=== PATIENT | female | born 1930 | race Caucasian/White ===

== ENCOUNTER 2016-07-16 08:54 | Inpatient (IN) ==
--- NOTE | 2016-07-16 10:09 | Diag Imaging Result Document ---
PROCEDURE NAME: CHEST-2 VIEWS - 07/16/2016 TWO VIEWS OF THE CHEST: There are scattered reticulonodular opacities throughout both lungs with the possible exception of the right middle lobe. There are no previous studies. IMPRESSION: Probable pulmonary fibrosis. The possibility of superimposed acute pneumonitis or pneumonia cannot be excluded and comparison with previous studies is recommended.
[2016-07-16] MEDS ORDERED: DUONEB (A & A) INH ONE (10:59)
[2016-07-16] MEDS ORDERED: ZITHROMAX 500 MG/NS 250 ML IV ONE (11:00)
[2016-07-16] MEDS ORDERED: ROCEPHIN 1 GM/NS 50 ML IV ONE (11:00)
[2016-07-16] MEDS ORDERED: ALBUTEROL NEB INH ONE (11:00)
[2016-07-16] MEDS ORDERED: SOLU-MEDROL IV ONE (11:01)
--- NOTE | 2016-07-16 11:14 | PROVIDER DOCUMENTATION ---
HPI-Respiratory General - General Chief Complaint: Cough Stated Complaint: POSS PNEUMONIA Time Seen by Provider: 07/16/16 11:08 Source: patient Allergies/Adverse Reactions: Patient Allergies Allergy/AdvReac Type Severity Reaction Status Date / Time No Known Allergies Allergy Verified 07/16/16 11:04 Home Medications: Home Medication List Medication Instructions Recorded Confirmed Last Taken Type Hydrocodone/APAP 5 mg/325 mg 1 each PO Q6H PRN PRN #10 tablet 12/07/12 07/16/16 07/16/16 06:30 Rx [[place]-5] Verapamil [Isoptin] 240 mg PO QAM 12/07/12 07/16/16 07/16/16 06:30 History CefPROZIL [Cefzil] 250 mg PO BID 07/16/16 07/16/16 07/16/16 06:30 History Oseltamivir [Tamiflu] 75 mg PO BID 07/16/16 07/16/16 07/16/16 06:30 History - History of Present Illness-Resp Nature of Presenting Problem: patient is a 86 y/o F that presents to the ER with one week of cough( yellow sputum) and body aches. Patient as exposed to flu this past week. No v/d. fever/ chills. Quality of Pain: reports: aching Severity in ED: reports: mild, moderate Onset/Duration: reports: gradual, 1 week ago Timing: reports: still present, constant Context: reports: multiple patients with similar complaints Cough Quality/Degree: reports: moderate, productive cough, sputum (yellow) Episode Frequency: no prior episodes Current Respiratory Medication Therapy: Initiated see nurses note Modifying Factors: worse with: exertion, coughing Associated Symptoms: reports: cough, flu-like symptoms, muscle/bodyaches, shortness of breath. denies: fever/chills, nasal congestion, nasal drainage Similar Symptoms Previously?: No Recently seen or treated by another doctor?: No Review of Systems - Adult - REVIEW OF SYSTEMS - ADULT Constitutional: reports: fever. denies: chills Eyes: reports: no symptoms reported Ears, Nose, Mouth & Throat: denies: ear pain, sinus problem, throat pain, throat swelling Cardiovascular: reports: chest pain (with inspiration) Respiratory: reports: cough, excessive sputum production, pleurisy Gastrointestinal: reports: nausea. denies: abdominal pain, diarrhea, vomiting Genitourinary: reports: no symptoms reported Musculoskeletal: reports: muscle aches. denies: muscle weakness, neck pain Integumentary: reports: no symptoms reported Neurological: denies: dizziness/vertigo, headache/migraines, tremors Psychiatric: reports: no symptoms reported Endocrine: reports: no symptoms reported Hematologic/Lymphatic: reports: no symptoms reported Allergic/Immunologic: reports: no symptoms reported All Other Systems: Reviewed and Negative Past History - Adult - PAST MEDICAL HISTORY-ADULT Review of Records: reports: Old Records Reviewed, Nursing Assessment Review, Medications Reviewed Cardiovascular: reports: HTN Endocrine/Immune: reports: thyroid disorder - PRIOR SURGERIES/PROCEDURES Surgical/Procedure History: reports: hysterectomy, other (bladder) - IMMUNIZATION STATUS Childhood Immunizations: See Nurse Assessment Flu Vaccine: See Nurse Assessment - FAMILY HISTORY Family History: reviewed, not pertinent - SOCIAL HISTORY Smoking: non-smoker Living Situation: family Physical Exam-General - PHYSICAL EXAM-ADULT Initial Vital Signs Reviewed: Yes - CONSTITUTIONAL General Appearance: alert, no apparent distress - EYES Eyes: PERRL/EOMI, pink conjunctivae - HEAD, EARS, NOSE, MOUTH & THROAT HENMT: normocephalic/atraumatic, moist mucous membranes, normal ENT inspection - NECK Neck: full range of motion, normal inspection. negative: lymphadenopathy - RESPIRATORY Respiratory: no respiratory distress, no accessory muscle use, rhonchi ( bilaterally), wheezing (bilaterally) - CARDIOVASCULAR Cardiovascular: regular rate, rhythm, no gallop, no murmur - GASTROINTESTINAL (ABDOMEN) Abdominal Exam: normal bowel sounds, non tender, soft, no organomegaly, no pulsatile mass - MUSCULOSKELETAL Extremity: normal range of motion, normal inspection, no pedal edema - SKIN Integumentary: normal color, warm/dry - NEUROLOGIC Neurologic: grossly normal, no motor/sensory deficits - PSYCHIATRIC Psych/Mental Status: normal mood/affect, normal thought content, normal thought process, oriented x 3 Progress - PLAN OF CARE/RESULTS Progress/Plan/Lab Results: Vital Signs Temp Pulse Resp BP Pulse Ox 07/16/16 11:58 93 H 25 H 124/53 95 07/16/16 11:15 114 H 16 94 L 07/16/16 09:08 98.2 F 92 H 18 133/56 92 L No Known Allergies Allergy (Verified 07/16/16 11:04) Hydrocodone/APAP 5 mg/325 mg [[place]-5] 1 each PO Q6H PRN PRN #10 tablet Verapamil [Isoptin] 240 mg PO QAM 12/07/12 CefPROZIL [Cefzil] 250 mg PO BID 07/16/16 Oseltamivir [Tamiflu] 75 mg PO BID 07/16/16 Laboratory 07/16/16 07/16/16 07/16/16 11:06 10:45 10:45 WBC RBC Hgb Hct MCV MCH MCHC RDW Std Deviation Plt Count MPV Immature Gran % (Auto) Neut % (Auto) Lymph % (Auto) [place] % (Auto) Eos % (Auto) Baso % (Auto) Immature Gran # (Auto) Neut # (Auto) Lymph # (Auto) [place] # (Auto) Eos # (Auto) Baso # (Auto) Specimen Type ARTERIAL Sample Site R RADIAL pH 7.40 pCO2 37 pO2 73 HCO3 23.7 Base Excess -1.5 Oxyhemoglobin 93.9 L ABG O2 Sat (Calculated) 18.8 ABG O2 Saturation 97.7 ABG Carboxyhemoglobin 2.30 ABG Methemoglobin 1.5 Azeem Test YES A-a O2 Difference 109.0 Total Hemoglobin 14.2 Lactate 0.60 Blood Gas Modality CANNULA FiO2 % 32.0 Sodium 137 Potassium 4.4 Chloride 99 Carbon Dioxide 23 L Anion Gap 15 BUN 27 H Creatinine 1.0 H Estimated GFR/1.73 m2 52 BUN/Creatinine Ratio 27 Glucose 109 H Calculated Osmolality 280 Calcium 9.1 Total Bilirubin 0.40 AST 25 ALT 14 Alkaline Phosphatase 101 Total Protein 7.5 Albumin 3.5 Globulin 4.0 Albumin/Globulin Ratio 0.9 Plasma Lactate 1.2 07/16/16 10:45 WBC 11.29 H RBC 4.81 Hgb 13.5 Hct 42.5 MCV 88.4 MCH 28.1 MCHC 31.8 L RDW Std Deviation 14.2 Plt Count 233 MPV 10.9 H Immature Gran % (Auto) 0.4 Neut % (Auto) 80.1 H Lymph % (Auto) 10.7 L [place] % (Auto) 8.6 Eos % (Auto) 0.0 Baso % (Auto) 0.2 Immature Gran # (Auto) 0.05 H Neut # (Auto) 9.04 H Lymph # (Auto) 1.21 [place] # (Auto) 0.97 H Eos # (Auto) 0.00 Baso # (Auto) 0.02 Specimen Type Sample Site pH pCO2 pO2 HCO3 Base Excess Oxyhemoglobin ABG O2 Sat (Calculated) ABG O2 Saturation ABG Carboxyhemoglobin ABG Methemoglobin Azeem Test A-a O2 Difference Total Hemoglobin Lactate Blood Gas Modality FiO2 % Sodium Potassium Chloride Carbon Dioxide Anion Gap BUN Creatinine Estimated GFR/1.73 m2 BUN/Creatinine Ratio Glucose Calculated Osmolality Calcium Total Bilirubin AST ALT Alkaline Phosphatase Total Protein Albumin Globulin Albumin/Globulin Ratio Plasma Lactate Orders Category Date Time Status CHEST-2 VIEWS [RAD] Stat Exams 07/16/16 09:12 Completed ABG [RESP] Routine Lab 07/16/16 11:06 Completed BLOOD CULTURE [BLDCUL] Stat Lab 07/16/16 10:45 Results CBC WITH DIFF [HEME] Stat Lab 07/16/16 10:45 Completed CMP [COMPREHENSIVE METABOLIC PANEL] [CHEM] Stat Lab 07/16/16 10:45 Completed LACTATE, PLASMA [CHEM] Stat Lab 07/16/16 10:45 Completed SPUTUM CULTURE WITH GRAM STAIN [RM] Routine Lab 07/16/16 12:05 Received Albuterol 2.5MG/Ipratrop 0.5MG [Duoneb (A & A)] Med 07/16/16 10:59 Discontinued 3 ml INH NOW ONE Albuterol [Albuterol Neb] Med 07/16/16 11:00 Discontinued 5 mg INH NOW ONE Azithromycin 500 mg/Ns [Zithromax 500 mg/Ns] 250 ml Med 07/16/16 11:00 Discontinued IV NOW CefTRIAXONE 1 GM/NS [Rocephin 1 gm/Ns] 50 ml Med 07/16/16 11:00 Discontinued IV NOW Methylprednisolone Sod Succ [Solu-Medrol] Med 07/16/16 11:01 Discontinued 125 mg IV NOW ONE Aerosol Treatments Routine Oth 07/16/16 10:59 Completed Aerosol Treatments Stat Oth 07/16/16 10:59 Completed - XRAY 1 XRAY Study: Chest Impression: Abnormal XRAY Interpretation: probably pulmonary fibrosis, possible pneumonitis or pneumonia cannot r/o - CONSULTS/PCP/HOSPITALIST Notification #1 *Consult/PCP/Hospitalist*: Time Discussed: 12:49 Consult Disposition: Will see in ED, Admit Departure - Departure Time of Disposition Order: 12:49 DIAGNOSIS: Pneumonia Qualifiers: Pneumonia type: due to unspecified organism Laterality: bilateral Lung location : unspecified part of lung Qualified Code(s): J18.9 - Pneumonia, unspecified organism Disposition: ADMITTED INPATIENT 09 Certified Medical Emergency: Emergent Condition: Stable Attestation - Scribe Verification/Attestation Scribe:: Moses Treadwell Acting as Scribe for:: Nav Turner Scribe documention review:: This chart was documented by a scribe and accurately reflects the service the provider performed and the decisions made by the provider. - Physician/ SARAN Attestation Patient care was provided by Advanced Practice Provider:: Yes Advanced Practice Provider:: Nav Turner Advanced Practice Provider documentation review:: The Mid-level provider documentation, treatment plan and medical decision making was reviewed by the physician who agrees with all treatment and medical decision making by the MLP. Physician Attestation - Physician Attestation I, the provider, attest to the following statement:: Nav Turner Physician documentation Attestation:: This documentation recorded by the scribe accurately reflects the service I personally performed and the decisions made by me.
[2016-07-16 11:17] LABS: ALLEN TEST YES; BE -1.5 mmoll (-3.0-3.0); BLOOD TYPE ARTERIAL; DRAW SITE R RADIAL; METHB 1.5 % (0.0-1.5); O2(CT) 18.8 mL/dL (15.0-23.0); PCO2(98.6) 37 mmHg (35-45); PO2(98.6) 73 mmHg (60-100); SAMPLE BLOOD; SAO2 97.7 % (95.0-100.0); THB 14.2 g/dL (11.5-17.4)
[2016-07-16 11:18] LABS: MANUAL DIFF NEEDED? NO
[2016-07-16 11:21] LABS: MODALITY CANNULA
[2016-07-16 11:22] LABS: BASO% 0.2 % (0.0-0.8); HEMATOCRIT 42.5 % (37.0-47.0); HEMOGLOBIN 13.5 g/dL (12.0-16.0); IMM GRAN# 0.05 X1000 (0.0-0.04); IMM GRAN% 0.4 % (0.0-0.5); LYMPH# 1.21 X1000 (1.2-3.4); LYMPH% 10.7 % (20.5-51.1); MCH 28.1 PG (27-31); MCHC 31.8 g/dL (33-37); MCV 88.4 FL (81-99); MONO# 0.97 X1000 (0.11-0.59); MONO% 8.6 % (1.7-9.3); MPV 10.9 FL (7.4-10.4); NEUT% 80.1 % (42.2-75.2); PLT 233 X1000 (130-400); RBC 4.81 XMIL (4.2-5.4)
[2016-07-16 11:59] LABS: ALBUMIN 3.5 g/dL (3.5-5.0); CALCIUM 9.1 mg/dL (8.8-10.2); POTASSIUM 4.4 mmol/L (3.5-5.1); TOTAL BILIRUBIN 0.4 mg/dL (0.20-1.00); TOTAL PROTEIN 7.5 g/dL (6.3-8.3)
[2016-07-16] MEDS ORDERED: DUONEB (A & A) INH PRN (15:04)
[2016-07-16] MEDS ORDERED: ROBITUSSIN-DM PO PRN (16:20)
--- NOTE | 2016-07-16 16:53 | Diag Imaging Result Document ---
PROCEDURE NAME: CT THORAX W/O CONTRAST - 07/16/2016 CT CHEST WITHOUT CONTRAST: COMPARISON: None available. FINDINGS: There is diffuse coarse interstitial thickening throughout both lungs as well as patchy ground-glass opacity with mild traction bronchiectasis at the lung bases suggesting pulmonary fibrosis in a pattern most suggestive of nonspecific interstitial pneumonia. There is involvement of all of the pulmonary lobes bilaterally. It would be difficult to completely exclude superimposed infectious pneumonia in the right clinical scenario, however. Followup chest radiography is recommended. There is no pleural fluid collection or pneumothorax. There is nonspecific mediastinal and hilar lymphadenopathy. For reference, one of the larger sub- carinal richi conglomerates measures up to 2.8 x 1.8 cm axially. Limited views of the upper abdomen reveals a calcified stone in the lumen of the gallbladder with no surrounding inflammatory change. There is aortic atherosclerotic calcification. IMPRESSION: 1. Bilateral diffuse pulmonary fibrosis as described. In the right clinical scenario, superimposed infectious pneumonia would be difficult to completely exclude as there are no prior studies available for comparison. 2. Nonspecific mediastinal and hilar lymphadenopathy. 3. Other incidental/nonacute findings detailed above. [facility]
[2016-07-16] MEDS: ROCEPHIN 1 GM/NS 50 ML IV SCH (18:04)
[2016-07-16] MEDS: NS 1,000 ML IV SCH (18:04)
--- NOTE | 2016-07-16 18:34 | HISTORY AND PHYSICAL ---
PRIMARY CARE PHYSICIAN: Dr. Mccarthy. CHIEF COMPLAINT: Cough and shortness of breath. HISTORY OF PRESENT ILLNESS: Ms. Burns is a pleasant 86-year-old female with a history of chronic back pain and hypertension who presents with 2 weeks of shortness of breath and progressive cough. Over the past week she has been having cough with white to yellowish sputum production. Also with a reported fever of 102 degrees Fahrenheit. She was reportedly exposed to someone with the flu last week and was put on Tamiflu by her PCP as well as antibiotics. The symptoms have not improved, and she came to the ER for evaluation. She denies any abdominal pain, nausea, or vomiting. She does report occasional chest pain with cough. She denies lower extremity edema or orthopnea. She came to the ER for evaluation. In the ER, chest x-ray was compatible with fibrosis, laboratory data shows mild renal insufficiency and a leukocytosis of 11.29. On examination, her lungs have significant rhonchi bilaterally and she is saturating within normal limits. Given her symptoms, we are going to admit her for early pneumonia, blood cultures and antibiotics have been initiated. Appropriately. PAST MEDICAL HISTORY: 1. Chronic back pain. 2. Hypertension. SURGICAL HISTORY: Hysterectomy, bladder surgery, questionable thyroid surgery. SOCIAL HISTORY: No history of tobacco, alcohol or drug use. She is and lives alone with strong family support. FAMILY HISTORY: Both parents from "old age". REVIEW OF SYSTEMS: Fourteen-point review of systems obtained and found to be negative with the exception of the HPI. PHYSICAL EXAMINATION: VITAL SIGNS: Blood pressure is 114/76, heart rate 75, respiratory rate 24, saturation 95% on 2 L. Temperature is 98.2 degrees. GENERAL: This is a elderly-appearing 86-year-old female, lying in hospital bed in no acute distress. NEUROLOGIC: She is awake, alert, and oriented. She follows commands without focal deficits. HEENT: Head is atraumatic, normocephalic. Her pupils are equal, round, reactive to light. Oral mucosa is dry. Trachea is midline. No JVD. CHEST: Coarse bilaterally with rhonchi. CARDIOVASCULAR: Regular rate and rhythm. S1-S2 is noted. No murmurs, gallops, clicks, or rubs. GI: Soft, nondistended, nontender. Bowel sounds are positive. EXTREMITIES: Without edema, clubbing or cyanosis. Pulses are palpable bilaterally. DIAGNOSTIC DATA: Chest x-ray shows a fibrotic type picture, WBC 11.29, hemoglobin 13.5, hematocrit 42.5, platelet count 233,000. ABG on nasal cannula 2 L shows a pH of 7.4, CO2 of 37, O2 73, bicarb 23.7, sodium 137, potassium 4.4, chloride 99, CO2 23, anion gap 15, BUN 27, creatinine 1, glucose 109, calcium 9.1, bilirubin 0.4, AST 25, ALT 14, alkaline phosphatase 101. Protein 7.5, albumin 3.5, lactate 1.2. ASSESSMENT AND PLAN: 1. Community-acquired pneumonia: Failed outpatient treatment: I will admit the patient for IV antibiotics, breathing treatments and aggressive pulmonary toilet. Given the fibrotic-type picture, we will check a computed tomography without contrast for better visualization. We may consider inpatient Pulmonary consult or if her symptoms improve, we may let her see Pulmonary on an outpatient basis. We will continue antibiotics, breathing treatments and convert to oral within the next 24-48 hours. 2. Hypertension: Chronic and stable, continue home medications. 3. Renal insufficiency: Based on her age, weight, et cetera, her glomerular filtration rate is 52, we will continue light IV fluid hydration and monitor. Avoid any nephrotoxic medications. 4. We are going to add Lovenox 30 mg per day for deep venous thrombosis prophylaxis and p.o. proton pump inhibitor for gastrointestinal prophylaxis. Further recommendations to follow. Dictated by HERNANDO Boyer for Raquel England MD
[2016-07-16] MEDS: ZITHROMAX 500 MG/NS 250 ML IV SCH (18:46)
[2016-07-16] MEDS: MUCOMYST 20% INH SCH (19:25)
[2016-07-16] MEDS: DUONEB (A & A) INH SCH ×2 (19:25→23:45)
[2016-07-16] MEDS: TESSALON PO SCH (22:41)
[2016-07-16] MEDS: NORCO-5 PO PRN (23:47)
[2016-07-17] MEDS: DUONEB (A & A) INH SCH ×6 (03:23→23:22)
[2016-07-17] MEDS: NS 1,000 ML IV SCH ×2 (05:25→23:53)
[2016-07-17] MEDS: PRILOSEC PO SCH (06:31)
[2016-07-17 06:39] LABS: HEMATOCRIT 37.8 % (37.0-47.0); HEMOGLOBIN 11.9 g/dL (12.0-16.0); MCH 28.4 PG (27-31); MCHC 31.5 g/dL (33-37); MCV 90.2 FL (81-99); MPV 10.7 FL (7.4-10.4); RBC 4.19 XMIL (4.2-5.4)
[2016-07-17 06:51] LABS: CALCIUM 9.1 mg/dL (8.8-10.2); POTASSIUM 4.9 mmol/L (3.5-5.1)
[2016-07-17] MEDS: MUCOMYST 20% INH SCH ×2 (07:30→19:32)
--- NOTE | 2016-07-17 07:47 | Diag Imaging Result Document ---
PROCEDURE NAME: CHEST-PORTABLE - 07/17/2016 SINGLE FRONTAL RADIOGRAPH OF THE CHEST: COMPARISON: 07/16/2016. FINDINGS: Inspiration is suboptimal. There is stable mild elevation of the right hemidiaphragm. There are stable increased interstitial markings suggesting pulmonary fibrosis. No new consolidation is identified. Cardiac silhouette is stable. IMPRESSION: Stable chest.
[2016-07-17] MEDS ORDERED: ROBITUSSIN-DM PO ONE (09:22)
[2016-07-17 09:43] LABS: HEMOGLOBIN A1C 5.2 % (4.8-6.0)
[2016-07-17] MEDS: TESSALON PO SCH ×3 (09:44→21:42)
[2016-07-17] MEDS: ISOPTIN SR PO SCH (09:44)
[2016-07-17] MEDS: ZOSYN 3.375 GM/NS 50 ML IV SCH ×3 (09:49→21:42)
--- NOTE | 2016-07-17 13:35 | PROGRESS NOTE ---
DATE: 07/17/2016 SUBJECTIVE: The patient complains of a productive cough. Otherwise, she states that she feels okay. OBJECTIVE: Vital Signs: Temperature 98 degrees, blood pressure 170/66, heart rate 93, respirations 22, and O2 saturations 95% on room air. General: This is an elderly female, sitting up in bed in no acute distress. Head: Normocephalic, atraumatic. Heart: S1 , S2. Normal. Regular rate and rhythm. Lungs: Coarse breath sounds bilaterally. No crackles. No rales. Abdomen: Positive bowel sounds. Soft, nontender, nondistended. Extremities: No edema. No cyanosis. No calf tenderness. Neurologic: The patient is alert and oriented x3. LABS: White blood cell count 9.4, hemoglobin 11, hematocrit 37, platelets 196. Sodium 142, potassium 4.9, chloride 103, CO2 23, BUN 24, creatinine 0.9, glucose 130. ASSESSMENT AND PLAN: 1. Pneumonia. Continue on intravenous antibiotic therapy plus bronchodilator. 2. Hypertension. Controlled. 3. UTI. Continue on IV antibiotic therapy. Follow up on the urine culture. 4. Deep vein thrombosis prophylaxis. Will start the patient on Lovenox. 5. Will consult physical therapy. [facility]
[2016-07-17] MEDS: LOVENOX SUBQ SCH ×2 (14:04→14:06)
[2016-07-17] MEDS: ROCEPHIN 1 GM/NS 50 ML IV SCH (14:04)
[2016-07-17] MEDS: ZITHROMAX 500 MG/NS 250 ML IV SCH (17:31)
[2016-07-17 18:18] LABS: URINE SOURCE CLEAN CATCH
[2016-07-17 18:23] LABS: BILIRUBIN URINE NEGATIVE (NEGATIVE); BLOOD URINE MODERATE (NEGATIVE); COLOR YELLOW; GLUCOSE URINE NEGATIVE (NEGATIVE); LEUKOCYTES URINE MODERATE (NEGATIVE); NITRITE URINE POSITIVE (NEGATIVE); PROTEIN URINE TRACE mg/dL (NEGATIVE); SP GRAVITY URINE 1.023; TURBIDITY URINE HAZY (CLEAR); URINE MICRO REVIEW NEEDED? YES; UROBILINOGEN URINE NORMAL (NORMAL)
[2016-07-17 18:24] LABS: UR EPITHELIAL CELLS <10 /HPF (<10); URINE BACTERIA 1+ /HPF; URINE RBC TNTC /HPF (<10); URINE WBC <10 /HPF (<10)
[2016-07-17] MEDS: NORCO-5 PO PRN (21:42)
[2016-07-18] MEDS: DUONEB (A & A) INH SCH ×6 (03:43→23:45)
[2016-07-18] MEDS: ZOSYN 3.375 GM/NS 50 ML IV SCH ×5 (04:01→22:07)
[2016-07-18] MEDS: PRILOSEC PO SCH (06:39)
[2016-07-18 07:23] LABS: HEMATOCRIT 36.3 % (37.0-47.0); HEMOGLOBIN 11.5 g/dL (12.0-16.0); MCH 28.8 PG (27-31); MCHC 31.7 g/dL (33-37); MCV 90.8 FL (81-99); MPV 10.8 FL (7.4-10.4)
--- NOTE | 2016-07-18 07:50 | Diag Imaging Result Document ---
PROCEDURE NAME: CHEST-PORTABLE - 07/18/2016 SINGLE FRONTAL RADIOGRAPH OF THE CHEST: COMPARISON: 07/17/2016. FINDINGS: Bilateral pulmonary fibrosis is unchanged. No new consolidations are identified. Cardiac silhouette is stable. IMPRESSION: Stable chest.
[2016-07-18] MEDS: MUCOMYST 20% INH SCH ×2 (07:55→19:26)
[2016-07-18 08:40] LABS: POTASSIUM 4.2 mmol/L (3.5-5.1)
[2016-07-18] MEDS: ISOPTIN SR PO SCH (09:58)
[2016-07-18] MEDS: TESSALON PO SCH ×3 (09:58→20:31)
[2016-07-18] MEDS: NS 1,000 ML IV SCH (10:00)
[2016-07-18] MEDS: APRESOLINE PO SCH ×2 (10:32→17:22)
[2016-07-18] MEDS: NORVASC PO SCH (10:32)
[2016-07-18] MEDS: LOVENOX SUBQ SCH (13:32)
--- NOTE | 2016-07-18 14:40 | PROGRESS NOTE ---
DATE: 07/18/2016 SUBJECTIVE: The patient is sitting in a chair. She states that she feels better. She is still coughing a little bit. OBJECTIVE: Vital Signs: Temp 98 degrees, blood pressure 119/75, heart rate 74 ,respirations 18, O2 saturations 97% on 2 L. General: This is an elderly female, lying comfortably in bed, in no acute distress. Head: Normocephalic atraumatic. Heart: S1, S2. Normal. Regular rate and rhythm. Lungs: Clear to auscultation bilaterally. No wheezes, no rales. No rhonchi. Abdomen: Positive bowel sounds. Soft, nontender, nondistended. Extremities: No edema. No cyanosis. No calf tenderness. Neurologic: The patient is alert and oriented x3. LABS: Urine culture is growing gram-negative rods. Sputum culture is growing gram-negative rods. White blood cell count 13, hemoglobin 11, hematocrit 36, platelets 217,000. Sodium 144, potassium 4.2, chloride 109, CO2 17, BUN 23, creatinine 0.9, glucose 109, calcium 8. ASSESSMENT AND PLAN: 1. Pneumonia. The patient's sputum culture is growing gram-negative rods. We will continue on Zosyn and await the final culture results. Continue with bronchodilator therapy and supplemental oxygen. 2. Accelerated hypertension. Will add hydralazine. 3. UTI. Continue on IV antibiotic. 4. Deep vein thrombosis prophylaxis. Continue on Lovenox. 5. Continue with physical therapy. [facility]
[2016-07-18] MEDS: ROCEPHIN 1 GM/NS 50 ML IV SCH (15:45)
[2016-07-18] MEDS ORDERED: CALMOSEPTINE OINTMENT TOP PRN (16:15)
[2016-07-18] MEDS: ZITHROMAX 500 MG/NS 250 ML IV SCH (17:22)
[2016-07-18] MEDS: NORCO-5 PO PRN (20:32)
[2016-07-19] MEDS: APRESOLINE PO SCH ×4 (01:18→22:49)
[2016-07-19] MEDS: DUONEB (A & A) INH SCH ×6 (03:38→23:44)
[2016-07-19] MEDS: ZOSYN 3.375 GM/NS 50 ML IV SCH ×2 (03:50→09:08)
[2016-07-19] MEDS: PRILOSEC PO SCH ×2 (03:50→06:09)
[2016-07-19 07:03] LABS: HEMATOCRIT 39.7 % (37.0-47.0); HEMOGLOBIN 12.7 g/dL (12.0-16.0); MCH 28.3 PG (27-31); MCV 88.6 FL (81-99); MPV 10.2 FL (7.4-10.4); RBC 4.48 XMIL (4.2-5.4)
[2016-07-19 07:23] LABS: AGAP 15; BUN 12 mg/dL (8-22); CALCIUM 8.3 mg/dL (8.8-10.2); CHLORIDE 104 mmol/L (98-107); COSMO 280; POTASSIUM 3.2 mmol/L (3.5-5.1); SODIUM 141 mmol/L (136-145); TCO2 22 mmol/L (25-35)
[2016-07-19] MEDS: MUCOMYST 20% INH SCH ×2 (08:28→19:40)
[2016-07-19] MEDS: NORVASC PO SCH (09:08)
[2016-07-19] MEDS: TESSALON PO SCH ×3 (09:08→22:49)
[2016-07-19] MEDS: ISOPTIN SR PO SCH (09:08)
--- NOTE | 2016-07-19 09:08 | Diag Imaging Result Document ---
PROCEDURE NAME: CHEST-2 VIEWS - 07/19/2016 CHEST X-RAY 2 VIEWS, 07/19/2016: COMPARISON: 07/18/2016. FINDINGS: There is little change in the cardiomegaly and mild pulmonary vascular congestion. There is also reticulonodular opacity throughout the lungs, consistent with a combination of fibrosis and possible pulmonary edema. No pneumothorax or significant effusion. IMPRESSION: Cardiomegaly. Pulmonary fibrosis. Possible pulmonary edema. Recommend correlating with ProBNP level.
[2016-07-19] MEDS ORDERED: KLOR-CON PO ONE (09:13)
[2016-07-19] MEDS: NORCO-5 PO PRN ×2 (11:38→22:54)
[2016-07-19] MEDS: LASIX IV SCH (13:15)
[2016-07-19] MEDS ORDERED: APRESOLINE PO ONE (15:27)
[2016-07-19] MEDS: ROCEPHIN 1 GM/NS 50 ML IV SCH (15:47)
[2016-07-19] MEDS: LOVENOX SUBQ SCH (15:47)
--- NOTE | 2016-07-19 15:51 | PROGRESS NOTE ---
DATE: 07/19/2016 SUBJECTIVE: The patient complains of diarrhea, however it looks like she is having soft stools. OBJECTIVE: Vital Signs: Temperature 97 degrees, blood pressure 163/71, heart rate 73, respiration 20, O2 saturations 94% on 2 L nasal cannula. General: This is an elderly female, lying comfortably in bed, in no acute distress. Head: Normocephalic, atraumatic. Heart: S1, S2. Normal. Lungs: Coarse breath sounds bilaterally with crackles. Abdomen: Positive bowel sounds. Soft, nontender, nondistended. Extremities: No edema. No cyanosis. No calf tenderness. Neurologic: The patient is alert and oriented x3. LABS: White blood cell count 8.2, hemoglobin 12, hematocrit 39, platelets 251, 000. Sodium 141, potassium 3.2, chloride 104, CO2 22, BUN 12, creatinine 0.8, glucose 82. ProBNP 2495. ASSESSMENT AND PLAN: 1. H.influenza pneumonia. Continue on rocephin. 2. Acute pulmonary edema. Will order an echocardiogram and start the patient on IV Lasix. We will also monitor daily weights. 3. Accelerated hypertension. We will continue to adjust the patient's antihypertensives. 4. UTI secondary to e.coli. Continue on rocephin 5. Diarrhea. Will check the patient for c.diff. Start lactobacillus. 6. Deep venous thrombosis prophylaxis. Continue on Lovenox. 7. Continue with physical therapy. [facility]
[2016-07-19] MEDS: TRANDATE PO SCH (22:49)
[2016-07-19] MEDS: CULTURELLE PO SCH (22:49)
[2016-07-20] MEDS: LASIX IV SCH (00:55)
[2016-07-20] MEDS: DUONEB (A & A) INH SCH ×6 (05:44→22:51)
[2016-07-20] MEDS: PRILOSEC PO SCH (05:52)
[2016-07-20] MEDS: APRESOLINE PO SCH ×3 (05:52→21:49)
[2016-07-20 07:11] LABS: BASO% 0.9 % (0.0-0.8); EOS# 0.04 X1000 (0.0-0.7); EOS% 0.5 % (0.0-10.0); HEMATOCRIT 39.6 % (37.0-47.0); HEMOGLOBIN 12.8 g/dL (12.0-16.0); IMM GRAN# 0.67 X1000 (0.0-0.04); LYMPH% 22.7 % (20.5-51.1); MANUAL DIFF NEEDED? YES; MCH 28.3 PG (27-31); MCHC 32.3 g/dL (33-37); MCV 87.4 FL (81-99); MONO# 0.75 X1000 (0.11-0.59); NEUT% 56.9 % (42.2-75.2); PLT 330 X1000 (130-400); RBC 4.53 XMIL (4.2-5.4)
[2016-07-20] MEDS ORDERED: BLISTEX MEDICATED BERRY LIP BALM TOP PRN (07:19)
[2016-07-20 07:41] LABS: EOS 2 % (1-10); LYMPHS 20 % (21-51); MONO 4 % (1-9); NRBC 1 % (0-0)
[2016-07-20] MEDS: TESSALON PO SCH ×3 (08:02→21:50)
[2016-07-20] MEDS: CULTURELLE PO SCH ×2 (08:02→21:49)
[2016-07-20] MEDS: NORVASC PO SCH (08:02)
[2016-07-20] MEDS: ISOPTIN SR PO SCH (08:02)
[2016-07-20] MEDS: TRANDATE PO SCH ×2 (08:02→21:54)
[2016-07-20 08:06] LABS: CALCIUM 8.3 mg/dL (8.8-10.2); POTASSIUM 4.4 mmol/L (3.5-5.1)
--- NOTE | 2016-07-20 08:06 | ECHO REPORT ---
ORDER DATE: 07/19/2016 INTERPRETING PHYSICIAN: Dr. Morrow REQUESTING PHYSICIAN: CLINICAL INDICATIONS: An 86-year-old female with CHF, hypertension. M-MODE MEASUREMENTS: Right ventricle: 2.3 cm. Left ventricle end diastole: 3.1 cm. Left ventricle end systole: 1.4 cm. Posterior wall: 1.2 cm. Interventricular septum: 1.2 cm. Left atrium: 2.9 cm. Aortic root: 3.4 cm. SUMMARY OF 2-DIMENSIONAL IMAGIN. The left ventricular function is normal. Ejection fraction is estimated by computer tracing at 59%. No wall motion abnormality noted. The chamber is not dilated. 2. The right ventricle is normal. 3. There is a prominent epicardial fat pad. 4. The aortic valve opens normally. Color flow mapping indicates a very mild degree of regurgitation. 5. The mitral valve shows normal opening. There is some calcification of the annulus. There is a mild degree of mitral regurgitation. The pulsed wave Doppler of mitral inflow shows reversal of the E and the A wave. 6. The tissue Doppler of septal and lateral mitral annulus averages 5 cm. 7. The tricuspid valve looks normal. Color flow mapping indicates a mild degree of regurgitation. Inferior vena cava is not dilated. Pulmonary pressure is estimated at 25 mmHg. 8. The pulmonic valve looks normal. Color flow mapping unremarkable. 9. There is no pericardial effusion, masses, nor thrombus. CONCLUSIONS: The study is quite unremarkable except for impaired left ventricular relaxation. However, no significant valvular abnormality noted nor significant systolic abnormality. Clinical correlation recommended.
[2016-07-20] MEDS: MUCOMYST 20% INH SCH ×2 (08:34→19:05)
--- NOTE | 2016-07-20 09:27 | Diag Imaging Result Document ---
PROCEDURE NAME: CHEST-PORTABLE - 07/20/2016 SINGLE FRONTAL RADIOGRAPH OF THE CHEST: COMPARISON: 07/19/2016. FINDINGS: There are approximately stable reticular opacities bilaterally suggesting a combination of fibrosis and mild interstitial edema. No new consolidations are identified. Cardiac silhouette is stable. IMPRESSION: Essentially stable chest.
--- NOTE | 2016-07-20 15:22 | PROGRESS NOTE ---
DATE: 07/20/2016 SUBJECTIVE: The patient states that she feels a lot better today. She is not having diarrhea anymore. She states that she wants to go home. OBJECTIVE: Vital Signs: Temperature 98.0 degrees, blood pressure 148/55, heart rate 92, respiration 16, O2 saturations 96% on 2 L nasal cannula. General: This is an elderly female, lying comfortably in bed, in no acute distress. Head: Normocephalic, atraumatic. Heart: S1, S2. Normal. Regular rate and rhythm. Lungs: Clear to auscultation bilaterally. No wheezing. No rales. No rhonchi. Abdomen: Positive bowel sounds. Soft, nontender, nondistended. Extremities: No edema. No cyanosis. No calf tenderness. Neurologic: The patient is alert and oriented x3. LABS: Reviewed. ASSESSMENT AND PLAN: 1. Acute pulmonary edema. Improved. We will discontinue the Lasix at this time. 2. Pneumonia. This appears to have improved as well. We will continue the IV antibiotics today and then transition to oral antibiotics tomorrow. 3. Hypertension. Improved. Continue on labetalol, hydralazine, and Norvasc. 4. Urinary tract infection secondary to Escherichia coli. Continue on Rocephin. 5. Diarrhea. Resolved. Stool for Clostridium difficile was negative. 6. Deep vein thrombosis prophylaxis. Continue on Lovenox. 7. Disposition. We will plan to send the patient home tomorrow.
[2016-07-20] MEDS: ROCEPHIN 1 GM/NS 50 ML IV SCH (16:29)
[2016-07-20] MEDS: LOVENOX SUBQ SCH (16:33)
[2016-07-20] MEDS: NORCO-5 PO PRN (21:49)
[2016-07-21] MEDS: DUONEB (A & A) INH SCH ×2 (03:06→08:44)
[2016-07-21] MEDS ORDERED: IMODIUM PO PRN (04:53)
[2016-07-21] MEDS: PRILOSEC PO SCH (06:05)
[2016-07-21] MEDS: APRESOLINE PO SCH (06:05)
[2016-07-21 07:23] LABS: BASO% 0.4 % (0.0-0.8); EOS% 2.9 % (0.0-10.0); HEMATOCRIT 38.5 % (37.0-47.0); HEMOGLOBIN 12.5 g/dL (12.0-16.0); IMM GRAN# 0.55 X1000 (0.0-0.04); LYMPH# 1.51 X1000 (1.2-3.4); LYMPH% 21.9 % (20.5-51.1); MANUAL DIFF NEEDED? YES; MCH 28.2 PG (27-31); MCHC 32.5 g/dL (33-37); MCV 86.7 FL (81-99); MONO# 0.59 X1000 (0.11-0.59); MONO% 8.5 % (1.7-9.3); MPV 10.3 FL (7.4-10.4); NEUT% 58.3 % (42.2-75.2); PLT 368 X1000 (130-400); RBC 4.44 XMIL (4.2-5.4)
[2016-07-21 07:38] LABS: AGAP 16; BUN 17 mg/dL (8-22); CALCIUM 8.8 mg/dL (8.8-10.2); CHLORIDE 102 mmol/L (98-107); COSMO 281; SODIUM 140 mmol/L (136-145); TCO2 22 mmol/L (25-35)
[2016-07-21 07:46] VITALS: BP 125/53
[2016-07-21 07:52] LABS: BANDS 4 % (0-1); EOS 2 % (1-10); LYMPHS 26 % (21-51); MONO 8 % (1-9)
[2016-07-21] MEDS: MUCOMYST 20% INH SCH (08:44)
[2016-07-21] MEDS ORDERED: KLOR-CON PO ONE (08:46)
[2016-07-21] MEDS: TRANDATE PO SCH (08:50)
[2016-07-21] MEDS: TESSALON PO SCH (08:50)
[2016-07-21] MEDS: NORCO-5 PO PRN (08:51)
[2016-07-21] MEDS: NORVASC PO SCH (08:51)
[2016-07-21] MEDS: CULTURELLE PO SCH (08:51)
[2016-07-21] MEDS: ISOPTIN SR PO SCH (08:51)
== END 2016-07-21 12:07 | disposition home or self-care (01) | DRG 193 ==
LOC: ED 08:54 → 3N 13:04
PROVIDERS: ATTEND Internal Medicine
DX: J14 Pneumonia due to Hemophilus influenzae (principal); J81.0 Acute pulmonary edema; N39.0 Urinary tract infection, site not specified; I10 Essential (primary) hypertension; N28.9 Disorder of kidney and ureter, unspecified; R19.7 Diarrhea, unspecified; B96.20 Unspecified Escherichia coli [E. coli] as the cause of diseases classified elsewhere; Z79.899 Other long term (current) drug therapy
CPT/HCPCS: 36415; 71010; 71020; 71250; 80048; 80053; 81001; 82805; 83036; 83605; 83630; 83880; 85025; 85027; 87040; 87070; 87077; 87088; 87184; 87186; 87205; 87324; 87804; 89055; 89220; 93306; 94640; 94760; 94761; 94799; 96365; 96367; 96375; J0456; J0696; J1650; J1940; J2543; J2930; J7030; 97116-GP; 97530-GP